=== PATIENT | male | born 1990 | race African-American/Black ===

== ENCOUNTER 2016-04-24 21:02 | Emergency (ER) | payer OTHER ==
[~2016-04-24] VITALS: Ht 177.8 cm; Wt 81.6 kg
--- NOTE | 2016-04-24 22:10 | REPUSA ---
HISTORY: Trauma. COMPARISON: No relevant comparison is available at the time of interpretation. CT C-SPINE with reformations: C1 through T1: Neural rings intact without fracture. Dens intact. Central canal: Patent without neural encroachment. Alignment (by reformations): No acute listhesis. IMPRESSION: Nontraumatic C-spine.
[2016-04-24] MEDS ORDERED: ACETAMINOPHEN 325 MG TAB PO ONE (22:15)
[2016-04-24 22:25] VITALS: BP 119/75
== END 2016-04-24 23:14 | disposition home or self-care (01) ==
LOC: EDBD 21:02 → M ED 22:35
DX: S13.4XXA Sprain of ligaments of cervical spine, initial encounter (principal); W50.0XXA Accidental hit or strike by another person, initial encounter; Y92.89 Other specified places as the place of occurrence of the external cause; Y93.89 Activity, other specified; Y99.8 Other external cause status